=== PATIENT | male | born 1950 | race Caucasian/White ===

== ENCOUNTER → 2016-03-08 | Outpatient (CLI) | payer BC ==
[~2016-03-08] VITALS: Ht 188 cm; Wt 93.0 kg
[~2016-03-08] MED LIST: NS 1,000 ML IV SCH; PRAV10TA PO; PROPOFOL 200 MG/20 ML VIAL As Ordered ONE
--- NOTE | 2016-03-08 10:21 | ROOR ---
Patient Name: Kenan Shaver Procedure Date: 03/08/2016 9:48 AM Date of : 1950 Age: 65 Room: [facility] [place] Gender: Male Note Status: Finalized Procedure: Colonoscopy to Cecum + Cold Snare Polypectomy + Hemoclips. Indications: Screening for colorectal malignant neoplasm Providers: Wili Kirby MD Referring MD: FAVIOLA PEARSON JR, MD Requesting Provider: Medicines: Monitored Anesthesia Care Complications: No immediate complications. Procedure: Pre-Anesthesia Assessment: - The heart rate, respiratory rate, oxygen saturations, blood pressure, adequacy of pulmonary ventilation, and response to care were monitored throughout the procedure. The Colonoscope was introduced through the anus and advanced to the cecum, identified by appendiceal orifice and ileocecal valve. The colonoscopy was performed without difficulty. The patient tolerated the procedure well. The quality of the bowel preparation was excellent. Findings: The perianal and digital rectal examinations were normal. Non-bleeding internal hemorrhoids were found during retroflexion. The hemorrhoids were small and Grade I (internal hemorrhoids that do not prolapse). Scattered small-mouthed diverticula were found in the recto-sigmoid colon, sigmoid colon and descending colon. A medium polyp was found in the mid ascending colon. The polyp was sessile. The polyp was removed with a cold snare. Resection and retrieval were complete. To prevent bleeding after the polypectomy, two hemostatic clips were successfully placed (MR conditional). There was no bleeding at the end of the procedure. A small polyp was found at 45 cm proximal to the anus. The polyp was sessile. The polyp was removed with a cold biopsy forceps. Resection and retrieval were complete. To prevent bleeding after the polypectomy, one hemostatic clip was successfully placed (MR conditional). There was no bleeding at the end of the procedure. The exam was otherwise without abnormality on direct and retroflexion views. Impression: - Non-bleeding internal hemorrhoids. - Diverticulosis in the recto-sigmoid colon, in the sigmoid colon and in the descending colon. - One medium polyp in the mid ascending colon, removed with a cold snare. Resected and retrieved. Clips (MR conditional) were placed. - One small polyp at 45 cm proximal to the anus, removed with a cold biopsy forceps. Resected and retrieved. Clip (MR conditional) was placed. - The examination was otherwise normal on direct and retroflexion views. - The exam was otherwise normal to the cecum. Recommendation: - Patient has a contact number available for emergencies. The signs and symptoms of potential delayed complications were discussed with the patient. Return to normal activities tomorrow. Written discharge instructions were provided to the patient. - High fiber diet. - Continue present medications. - Await pathology results. - Telephone GI clinic for pathology results in 1 week. - Repeat colonoscopy for surveillance based on pathology results. - Return to referring physician. - The findings and recommendations were discussed with the patient's family. Wili Kirby MD Wili Kirby MD 03/08/2016 10:21:11 AM This report has been signed electronically. Number of Addenda: 0 Note Initiated On: 03/08/2016 9:48 AM Estimated Blood Loss: Estimated blood loss: none.
[2016-03-08 11:13] VITALS: BP 144/89
== END ==
LOC: M OPP 08:38
PROVIDERS: ATTEND Internal Medicine Gastroenterology
DX: Z12.11 Encounter for screening for malignant neoplasm of colon (principal); K64.0 First degree hemorrhoids; K57.30 Diverticulosis of large intestine without perforation or abscess without bleeding; D12.2 Benign neoplasm of ascending colon; D12.5 Benign neoplasm of sigmoid colon; E78.00 Pure hypercholesterolemia, unspecified; D69.1 Qualitative platelet defects; Z79.899 Other long term (current) drug therapy